=== PATIENT | male | born 1970 | race Hispanic/Latino ===

== ENCOUNTER 2024-01-10 09:11 | Inpatient (IN) | payer OTHER ==
[~2024-01-10] VITALS: Ht 167.6 cm; Wt 78.5 kg
[2024-01-10] MEDS: MAG/ALUM/SIMETH 30 ML UDCUP PO ONE ×2 (09:30→15:01)
[2024-01-10] MEDS: LIDOCAINE HCL 2% VISCOUS 15 ML UDCUP PO ONE (09:30)
[2024-01-10] MEDS: PANTOPrazole 40 MG/VIAL IVP ONE (09:30)
[2024-01-10] MEDS: ondanSETRON 4MG INJ IVP ONE (09:30)
[2024-01-10 09:35] LABS: BASOPHILS # (AUTO) 0.03 K/uL (0.00-0.20); BASOPHILS % (AUTO) 0.4 % (0.0-5.0); EOSINOPHILS # (AUTO) 0.04 K/uL (0.00-0.70); EOSINOPHILS % (AUTO) 0.5 % (0.0-8.0); HEMATOCRIT 46.8 % (42-54); IMMATURE GRANULOCYTE ABSOLUTE 0.02 K/uL (0-1); LYMPHOCYTES # (AUTO) 2.8 K/uL (1.0-4.8); LYMPHOCYTES % (AUTO) 37.8 % (21.0-51.0); MEAN CORPUSCULAR HEMOGLOBIN 30.3 pg (27.0-33.0); MEAN CORPUSCULAR VOLUME 89.1 fL (79-99); MONOCYTES # (AUTO) 0.6 K/uL (0.1-1.0); MONOCYTES % (AUTO) 7.7 % (3.0-13.0); NEUTROPHILS # (AUTO) 3.9 K/uL (1.8-7.7); NEUTROPHILS % (AUTO) 53.3 % (40.0-77.0); PLATELET COUNT (AUTO) 205 K/uL (130-400); RED BLOOD CELL COUNT(AUTO) 5.25 MIL/uL (4.50-6.20); RED CELL DISTRIBUTION WIDTH 12.2 % (11.0-15.5); WHITE BLOOD COUNT (AUTO) 7.3 K/uL (4.8-10.8)
[2024-01-10] MEDS: ASPIRIN 325MG TAB PO ONE (10:27)
[2024-01-10] MEDS: NITROGLYCERIN 0.4 MG SL TAB SL PRN (10:30)
[2024-01-10] MEDS ORDERED: PoTASSium chl 10% ELIXIR 20MEQ 20 MEQ/15 ML UDCUP PO PRN (12:00)
[2024-01-10] MEDS ORDERED: PoTASSium chloRIDE 20MEQ/100ML 100 ML IV PRN (12:00)
[2024-01-10] MEDS ORDERED: acetaMINOPHEN 325 MG TAB PO PRN ×2 (12:00)
[2024-01-10] MEDS ORDERED: guaiFENesin-DM 200/20MG 10ML PO PRN (12:00)
[2024-01-10] MEDS ORDERED: hydrALAZine 20MG/ML VIAL IV PRN (12:00)
[2024-01-10] MEDS ORDERED: FAMOTIDINE 20MG VIAL IV PRN (12:00)
[2024-01-10] MEDS ORDERED: PoTASSium chloRIDE 10MEQ/100ML 100 ML IV PRN (12:00)
[2024-01-10] MEDS ORDERED: DiphenhydrAMINE HCL 25 MG CAPSULE PO PRN (12:00)
[2024-01-10] MEDS ORDERED: DEXTROSE 50%-WATER 50 ML DISP.SYRIN IV PRN (12:00)
[2024-01-10] MEDS ORDERED: MAGNESIUM 2GM PREMIX 50ML 50 ML IV PRN (12:00)
[2024-01-10] MEDS ORDERED: ondanSETRON 4MG INJ IV PRN (12:00)
[2024-01-10] MEDS ORDERED: GLUCAGON 1MG KIT 1 MG ML IM PRN (12:00)
[2024-01-10] MEDS ORDERED: HYDROcodone/APAP 5/325 1 TAB TABLET PO PRN (12:00)
[2024-01-10] MEDS ORDERED: PoTASSium chloRIDE 20MEQ ER 20 MEQ ERTAB PO PRN (12:00)
[2024-01-10] MEDS ORDERED: morPHINE 2 MG SYG IVP PRN (12:00)
[2024-01-10] MEDS ORDERED: NITROGLYCERIN 0.4 MG SL TAB SL PRN (12:00)
[2024-01-10] MEDS ORDERED: LACTULOSE 20 GM/30 ML UDCUP PO PRN (12:00)
[2024-01-10 12:04] LABS: ALBUMIN 3.8 g/dL (3.5-5.0); BILIRUBIN,DIRECT 0.2 mg/dL (0.0-0.3); BILIRUBIN,TOTAL 0.8 mg/dL (0.2-1.0); MAGNESIUM 1.9 mg/dL (1.80-2.40); PHOSPHORUS 3.2 mg/dL (2.5-4.9); TOTAL PROTEIN, SERUM 7.7 g/dL (6.0-8.3)
[2024-01-10 12:05] LABS: HEMOGLOBIN A1C 5.3 % (4.0-6.0)
[2024-01-10 12:56] LABS: APPEARANCE,URINE CLEAR (CLEAR); BILIRUBIN,URINE NEGATIVE (NEGATIVE); COLOR,URINE YELLOW (YELLOW); GLUCOSE, URINE (UA) NEGATIVE (NEGATIVE); KETONES,URINE NEGATIVE (NEGATIVE); LEUKOCYTE ESTERASE ,URINE NEGATIVE Leu/uL (NEGATIVE); NITRATE,URINE NEGATIVE (NEGATIVE); OCCULT BLOOD,URINE NEGATIVE (NEGATIVE); PROTEIN,URINE NEGATIVE (NEGATIVE); UROBILINOGEN,URINE 0.2 mg/dL (0.2-1.0)
[2024-01-10 12:58] LABS: WBC,URINE 0-1 /HPF (0-1)
[2024-01-10 13:10] VITALS: BP 136/90; PULSE 66; RESP 20; TEMP 97.9
[2024-01-10 13:32] VITALS: O2SAT 99
[2024-01-10] MEDS ORDERED: MAG/ALUM/SIMETH 30 ML UDCUP PO PRN (14:30)
[2024-01-10] MEDS: 0.9%NACL 1000ML 1,000 ML IV SCH (15:00)
[2024-01-10 15:30] VITALS: BP 132/72; PULSE 71; RESP 20; TEMP 98.1
[2024-01-10 16:28] LABS: CHOLESTEROL 257 mg/dL (<200); HDL CHOLESTEROL 51 mg/dL (29-71); LDL DIRECT 154 mg/dL (0-99); TRIGLYCERIDES 261 mg/dL (30-200)
[2024-01-10] MEDS: ENOXAPARIN SODIUM 80 MG/0.8 ML SQ SCH (18:06)
[2024-01-10 20:00] VITALS: BP 129/97; PULSE 87; RESP 16; TEMP 98.4; O2SAT 98
[2024-01-10] MEDS: FAMOTIDINE 20MG VIAL IV SCH (21:00)
[2024-01-10] MEDS: atorVAStatin 40 MG TABLET PO SCH (21:00)
[2024-01-10 23:42] VITALS: BP 139/92; PULSE 76; RESP 16; TEMP 98.5
[2024-01-11] VITALS (13 sets, daily range): BP systolic 115–135; BP diastolic 80–94; PULSE 65–83; RESP 18–20; TEMP 98.1–99.6; O2SAT 95–97
[2024-01-11 06:11] LABS: BASOPHILS # (AUTO) 0.02 K/uL (0.00-0.20); BASOPHILS % (AUTO) 0.3 % (0.0-5.0); EOSINOPHILS # (AUTO) 0.05 K/uL (0.00-0.70); EOSINOPHILS % (AUTO) 0.7 % (0.0-8.0); HEMATOCRIT 42.9 % (42-54); IMMATURE GRANULOCYTE ABSOLUTE 0.02 K/uL (0-1); LYMPHOCYTES # (AUTO) 2.8 K/uL (1.0-4.8); LYMPHOCYTES % (AUTO) 37.3 % (21.0-51.0); MEAN CORPUSCULAR HEMOGLOBIN 29.8 pg (27.0-33.0); MEAN CORPUSCULAR HGB CONC 33.1 g/dL (32.0-36.0); MEAN CORPUSCULAR VOLUME 89.9 fL (79-99); MONOCYTES # (AUTO) 0.6 K/uL (0.1-1.0); MONOCYTES % (AUTO) 8.3 % (3.0-13.0); NEUTROPHILS % (AUTO) 53.1 % (40.0-77.0); PLATELET COUNT (AUTO) 209 K/uL (130-400); RED BLOOD CELL COUNT(AUTO) 4.77 MIL/uL (4.50-6.20); RED CELL DISTRIBUTION WIDTH 12.3 % (11.0-15.5); WHITE BLOOD COUNT (AUTO) 7.5 K/uL (4.8-10.8)
[2024-01-11 06:20] LABS: MAGNESIUM 2.2 mg/dL (1.80-2.40); PHOSPHORUS 3.1 mg/dL (2.5-4.9); POTASSIUM 4.6 mmol/L (3.5-5.1)
[2024-01-11 07:52] LABS: INR 1.01 (0.85-1.15); PROTHROMBIN TIME 10.9 SEC (9.6-11.6)
[2024-01-11 07:54] LABS: PARTIAL THROMBOPLASTIN TIME 28.3 SEC (26.3-35.5)
[2024-01-11] MEDS: ASPIRIN 81MG CHEW TAB PO SCH (09:00)
[2024-01-11] MEDS: metOPROLol sucCINATE 25 MG TAB.SR.24H PO SCH (09:00)
[2024-01-11] MEDS ORDERED: ENOXAPARIN SODIUM 40 MG/0.4 ML SYRINGE SQ SCH (09:00)
[2024-01-11 10:11] LABS: HEMOGLOBIN A1C 5.3 % (4.0-6.0)
[2024-01-11] MEDS ORDERED: LIDOCAINE HCL 400MG/20ML VIAL ONE ×2 (11:18→12:37)
[2024-01-11] MEDS ORDERED: IOHEXOL 350 MG/ML 100ML INFUS..BTL IV ONE ×2 (11:19→13:05)
[2024-01-11] MEDS ORDERED: niCARDIpine 25MG INJ IV ONE (11:19)
[2024-01-11] MEDS ORDERED: HEParin-NS 1,000 UNIT/500 ML 1,000 ML IV ONE (11:19)
[2024-01-11] MEDS ORDERED: HEParin 10,000 UNIT/10ML (1,000 UNIT/ML) VIAL ONE (11:19)
[2024-01-11] MEDS ORDERED: NITROGLYCERIN 50MG VIAL ONE (11:19)
[2024-01-11] MEDS ORDERED: FENTanyl CITRate PF 50 MCG/1 ML 2ML VIAL ONE (11:33)
[2024-01-11] MEDS ORDERED: MIDAZOLAM HCL 1 MG/ML 2ML VIAL ONE ×2 (11:34→12:37)
[2024-01-11] MEDS ORDERED: HEParin-NS 1,000 UNIT/500 ML 500 ML IV ONE (12:48)
[2024-01-11] MEDS ORDERED: TICAGrelor 90 MG TABLET ONE (12:48)
[2024-01-11] MEDS ORDERED: ASPIRIN 325MG EC TAB PO ONE (12:50)
[2024-01-11] MEDS ORDERED: morPHINE 4 MG SYG ONE (13:16)
[2024-01-11] MEDS ORDERED: metoPROLOL tartRATE 1 MG/ML 5ML VIAL IV ONE (13:29)
[2024-01-11] MEDS ORDERED: IOHEXOL-350 50ML VIAL IV ONE (13:33)
[2024-01-11] MEDS: 0.9%NACL 1000ML 1,000 ML IV SCH (15:13)
[2024-01-11] MEDS: TICAGrelor 90 MG TABLET PO SCH (19:59)
[2024-01-12 00:15] VITALS: BP 135/92; PULSE 71; RESP 18; TEMP 98.5
[2024-01-12 04:58] VITALS: BP 144/94; PULSE 82; RESP 18; TEMP 98.2
[2024-01-12 05:32] LABS: HEMATOCRIT 44.7 % (42-54); MEAN CORPUSCULAR HEMOGLOBIN 30.4 pg (27.0-33.0); MEAN CORPUSCULAR HGB CONC 33.6 g/dL (32.0-36.0); MEAN CORPUSCULAR VOLUME 90.7 fL (79-99); RED BLOOD CELL COUNT(AUTO) 4.93 MIL/uL (4.50-6.20); RED CELL DISTRIBUTION WIDTH 12.2 % (11.0-15.5); WHITE BLOOD COUNT (AUTO) 9.7 K/uL (4.8-10.8)
[2024-01-12 06:03] LABS: CREATININE 1.1 mg/dL (0.5-1.3); POTASSIUM 3.9 mmol/L (3.5-5.1)
[2024-01-12] MEDS ORDERED: METO25TA3 PO (07:16)
[2024-01-12] MEDS ORDERED: Nitroglycerin 0.4MG Sl Tab SL (07:16)
[2024-01-12] MEDS ORDERED: ATOR40TA69 PO (07:16)
[2024-01-12] MEDS ORDERED: ASPI-1005 PO (07:16)
[2024-01-12] MEDS ORDERED: CLOP-31 PO (07:16)
[2024-01-12 08:00] VITALS: BP 123/86; PULSE 75; RESP 18; TEMP 98.2; O2SAT 96
[2024-01-12] MEDS: cloPIDOgrel 300MG TAB PO ONE (08:21)
[2024-01-13] MEDS ORDERED: cloPIDOgrel 75MG TAB PO SCH (09:00)
== END 2024-01-12 13:30 | disposition home or self-care (01) | DRG 321 ==
LOC: EDH 09:11 → EDHIP 11:32 → 4DH 13:10
PROVIDERS: ADMIT Internal Medicine Sleep Medicine; ATTEND Internal Medicine Sleep Medicine
PROC: 027135Z Dilation of Coronary Artery, Two Arteries with Two Drug-eluting Intraluminal Devices, Percutaneous Approach (ICD-10-PCS; principal; 2024-01-11)
PROC: 4A023N7 Measurement of Cardiac Sampling and Pressure, Left Heart, Percutaneous Approach (ICD-10-PCS; 2024-01-11)
PROC: B2111ZZ Fluoroscopy of Multiple Coronary Arteries using Low Osmolar Contrast (ICD-10-PCS; 2024-01-11)
PROC: B240ZZ3 Ultrasonography of Single Coronary Artery, Intravascular (ICD-10-PCS; 2024-01-11)
DX: I25.10 Atherosclerotic heart disease of native coronary artery without angina pectoris (principal); I21.4 Non-ST elevation (NSTEMI) myocardial infarction; E78.5 Hyperlipidemia, unspecified; K21.9 Gastro-esophageal reflux disease without esophagitis; Z79.899 Other long term (current) drug therapy; Z82.49 Family history of ischemic heart disease and other diseases of the circulatory system; Z83.3 Family history of diabetes mellitus
CPT/HCPCS: 36415; 71045; 80048; 80061; 80076; 81001; 83036; 83735; 84100; 84484; 85025; 85027; 85378; 85610; 85730; 92978; 93005; 93306; 93356; 93458; 96374; 96375; 99156; 99157; 99291; C1760; C1769; C1874; C1887; C1894; C9600; C9601; C9606; G0378; J1644; J1650; J2250; J2270; J2405; J2470; J3010; J3490; Q9967; A4649; C1713; C1725; C1753; C1757; Q9965

== ENCOUNTER → 2024-04-10 | Outpatient (CLI) | payer OTHER ==
[~2024-04-10] MED LIST: ASPI-1005 PO; ATOR40TA69 PO; CLOP-31 PO; METO25TA3 PO; Nitroglycerin 0.4MG Sl Tab SL
[2024-04-10] MEDS: REGADENOSON 0.4 MG/5 ML PF SYG IVP ONE (14:12)
--- NOTE | 2024-04-11 07:56 | HMCSR ---
APPROVED REPORT Height: 5 ft 6in Weight: 177 lbs TEST INDICATIONS CAD The imaging protocol used to acquire images was Rest Tc-99m/stress Tc-99m 1 day Consent: The procedure was explained and understood by the patient. Informerd consent was witnessed Cal Zimmer RN First, low dose rest was performed then high dose stress. RESTING DATA: The resting ekg shows: NSR Rest SPECT myocardial perfusion imaging was performed in supine position 66 minutes following the int ravenous injection of 9 mCi of Tc-99 Sestamibi. Time of rest injection: 08:12: Date: 04/10/2024 Time of rest imagin:18: Date: 04/10/2024 PHARMACOLOGIC STRESS: Pharmacologic stress test was performed by injecting regadenoson 0.4 mg IV push followed by the intra venous injection of 31.7 mCi of Tc-99 Sestamibi. Time of stress injection: 09:40: Date: 04/10/2024 Time of stress imagin:00: Date: 04/10/2024 Heart Rate at time of stress injection: 71 bpm. Gated Stress SPECT was performed 80 minutes after stress injection. The images were gated to evaluate regional wall motion and calculate left ventricular ejection fracti on. STRESS DETAILS Reason for Termination: Infusion complete Stress Symptoms: Dyspnea Max HR Achieved: 136 bpm % of APMHR Achieved: 81 Max Blood Pressure: 155/92 mmHg Stress ECG: NSR Conclusion No ischemia No infarct LV ejection fraction 70% Normal LV wall motion Normal LV size at rest and stress No increased lung uptake
== END | disposition home or self-care (01) ==
LOC: SHCH 07:59
PROVIDERS: ATTEND Internal Medicine Cardiovascular Disease
DX: I25.10 Atherosclerotic heart disease of native coronary artery without angina pectoris (principal); R06.00 Dyspnea, unspecified; R51.9 Headache, unspecified
CPT/HCPCS: 78452; 93017; J2785; A9500 ×2

== ENCOUNTER 2024-04-17 07:48 | Emergency (ER) | payer OTHER ==
[~2024-04-17] VITALS: Ht 165.1 cm; Wt 77.1 kg
--- NOTE | 2024-04-17 08:03 | ERN ---
ED Note History of Present Illness Stated Complaint: HEADACHE Chief Complaint: Headache Time Seen by MD: 07:58 Dictation: A 53-year-old male who comes to the ED. Because he over the last couple of days. It has some intermittent nonspecific headache. The comes and goes. He also stated that he has some left-sided some knee pain. This is the lateral side of his left lower knee. By the peroneal nerve. Also some left upper abdominal pain that comes and goes denies any changes in bowel or urination has not hematuria dysuria or discharge. No chest pain no shortness of breath no falls or traumas he is concerned because he had a stent placed in January does feel that his arm was intermittently tingly. This does change with motion of his left arm left shoulder Allergies: Coded Allergies: No Known Drug Allergies (Unverified Allergy, Unknown, 01/10/24) Home Meds Active Scripts [Nitroglycerin 0.4MG Sl Tab] 0.4 MG TAB.SUBL No Conflict Check, 0.4 MG SL PROTOCOL PRN for CHEST PAIN, #25 0 Refills Prov:JASMYNE PORTER MD 01/12/24 Metoprolol Succinate (Toprol Xl) 25 Mg Tab.er.24h, 12.5 MG PO DAILY, #90 TAB 3 Refills Prov:JASMYNE PORTER MD 01/12/24 Clopidogrel Bisulfate (Plavix) 75 Mg Tablet, 75 MG PO DAILY, #90 TAB 1 Refill Prov:JASMYNE PORTER MD 01/12/24 Atorvastatin Calcium (LIPITOR) 40 Mg Tablet, 40 MG PO HS, #90 TAB 3 Refills Prov:JASMYNE PORTER MD 01/12/24 Aspirin (ASPIRIN 81MG CHEW TAB) 81 Mg Tab.chew, 81 MG PO DAILY, #100 TAB.CHEW 3 Refills Prov:JASMYNE PORTER MD 01/12/24 Past Medical History Past Medical History: CAD, High Cholesterol, Hypertension Surgical History: Appendectomy, Other Surgical History Other: STENTS Review of System Dictation Constitutional: Negative for fever,chills, and weight loss Eyes: Negative for injury, pain,redness, and discharge ENT: Negative for injury,pain or swelling Cardiovascular: Negative for chest pain, palpitations, and edema Respiratory: Negative for shortness of breath, cough, and wheezing, Abdomen/GI: Negative for abdominal pain, nausea, vomiting, diarrhea, and constipation Back: Negative for injury and pain : Negative for injury, bleeding and discharge MS/Extremity: Negative for injury and deformity Skin: Negative for rash, and discoloration Neuro: Negative for headache, weakness, numbness, tingling, and seizure Psych: Negative for suicide ideation, homicidal ideation, and hallucinations Initial Vital Sign VS Vital Signs Date Time Temp Pulse Resp B/P (MAP) Pulse Ox O2 Delivery O2 Flow Rate FiO2 04/17/24 07:48 98.1 75 20 146/98 99 Room Air 0 Physical Exam Dictation General: awake, alert, NAD Head/Face: Normocephalic, atraumatic Eyes: PERRL, EOMI, vision at baseline ENT: oral cavity clear, TMs clear, no signs of infection Neck: Trachea midline, supple, no nuchal rigidity Cardiovascular: RRR, normal S1/S2, No MRGs, no JVD Respiratory: CTAB, no respiratory distress, No rales or wheezes Abdomen: Soft, non-tender, non-distended, normal bowel sounds, no guarding or rebound. Skin: Warm, dry, normal turgor, no rash MS/Extremity: Pulses equal, no cyanosis, neurovascular intact, FROM Neuro: COAx4, GCS 15, strength 5/5, CN 2-12 intact, normal cerebellar exam, normal gait, Psych: Normal behavior, mood, and affect normal NIH of 0 no focal deficits. Does not have any calf pain. Does not have any calf swelling compared to by a either bilateral leg. Does have 5/5 strength range of motion on both legs both knees both hips. This pain is tender to palpation has reproducible. This is the left lateral knee. By the peroneal nerve. Again there is either there is no swelling there is no redness there is no bruising Results (Laboratory/Radiology) Laboratory/Radiology Laboratory Tests Test 04/17/24 08:19 04/17/24 08:43 White Blood Count 5.5 K/uL (4.8-10.8) Red Blood Count 5.07 MIL/uL (4.50-6.20) Hemoglobin 14.7 g/dL (14.0-18.0) Hematocrit 44.2 % (42-54) Mean Corpuscular Volume 87.2 fL (79-99) Mean Corpuscular Hemoglobin 29.0 pg (27.0-33.0) Mean Corpuscular Hemoglobin Concent 33.3 g/dL (32.0-36.0) Red Cell Distribution Width 12.6 % (11.0-15.5) Platelet Count 211 K/uL (130-400) Mean Platelet Volume 9.8 fL (7.5-10.5) Immature Granulocyte % (Auto) 0.2 % (0-1) Neutrophils (%) (Auto) 57.1 % (40.0-77.0) Lymphocytes (%) (Auto) 31.8 % (21.0-51.0) Monocytes (%) (Auto) 9.8 % (3.0-13.0) Eosinophils (%) (Auto) 0.7 % (0.0-8.0) Basophils (%) (Auto) 0.4 % (0.0-5.0) Neutrophils # (Auto) 3.2 K/uL (1.8-7.7) Lymphocytes # (Auto) 1.8 K/uL (1.0-4.8) Monocytes # (Auto) 0.5 K/uL (0.1-1.0) Eosinophils # (Auto) 0.04 K/uL (0.00-0.70) Basophils # (Auto) 0.02 K/uL (0.00-0.20) Absolute Immature Granulocyte (auto 0.01 K/uL (0-1) Nucleated Red Blood Cells 0.0 % (0.0-0.19) Sodium Level 138 mmol/L (136-145) Potassium Level 4.1 mmol/L (3.5-5.1) Chloride Level 103 mmol/L (101-111) Carbon Dioxide Level 32 mmol/L (21-32) Blood Urea Nitrogen 13 mg/dL (7-18) Creatinine 1.0 mg/dL (0.5-1.3) Glomerular Filtration Rate Calc 91 mL/min (>90) Random Glucose 91 mg/dL (70-105) Total Calcium 8.8 mg/dL (8.5-10.1) Troponin I High Sensitivity 5 ng/L (4-75) Troponin I < 0.05 ng/mL (0.00-0.05) ED Course ED Course Orders Procedure Category Date Status Time Cbc With Differential LAB 04/17/24 Complete 07:58 Chest 1vw RAD 04/17/24 Taken 07:58 12 Lead Ekg Tracing- EKG 04/17/24 Complete Technical 07:58 Basic Metabolic Panel LAB 04/17/24 Complete 07:58 Troponin I High LAB 04/17/24 Complete Sensitivity 08:07 Vital Signs Date Time Temp Pulse Resp B/P (MAP) Pulse Ox O2 Delivery O2 Flow Rate FiO2 04/17/24 07:48 98.1 75 20 146/98 99 Room Air 0 Medical Decision Making MDM MDM: Differential diagnosis: Did consider DVT have no signs of this whatsoever. Did consider ACS unlikely does not have any chest pain or shortness of breath any radiating symptoms. Did consider stroke there is no evidence of this is likely a radiculopathy. Rationale: Tests considered and ordered secondary to shared decision making include: Previous outside records reviewed: Old ER visits. Risk of complication and/or morbidity or mortality of patient management: None Medications-Per medication reconciliation Need for hospitalization: Patient does not meet criteria for hospitalization. Need for emergency major/minor surgery: No There are no social concerns with this patient. Prescription drug management Prescriptions will include symptomatic care Patient's prior external medical records from other ER visits were reviewed by me as indicated. Prior testing and results from previous visits were reviewed. Prior tests were taken into account with medical decision making and resource ut ilization, independent historian/historians were used to obtain complete medical history. I independently interpreted the test that were performed, results were reviewed by me and considered findings on radiology if ordered. Medical management and examination interpretation discussions were had by me with other qualified healthcare professionals as indicated for the patient's car e. DX & DISP Disposition: Discharge Departure Impression: Primary Impression: Acute pain Condition: Stable Referrals: MORENO NAGY MD (PCP) KONRAD MOYA MD Apr 17, 2024 08:03
--- NOTE | 2024-04-17 08:18 | NUR ---
PT PLACED IN [facility] B1
[2024-04-17 08:42] LABS: POTASSIUM 4.1 mmol/L (3.5-5.1)
[2024-04-17 08:46] LABS: BASOPHILS # (AUTO) 0.02 K/uL (0.00-0.20); BASOPHILS % (AUTO) 0.4 % (0.0-5.0); EOSINOPHILS # (AUTO) 0.04 K/uL (0.00-0.70); EOSINOPHILS % (AUTO) 0.7 % (0.0-8.0); HEMATOCRIT 44.2 % (42-54); IMMATURE GRANULOCYTE ABSOLUTE 0.01 K/uL (0-1); LYMPHOCYTES # (AUTO) 1.8 K/uL (1.0-4.8); LYMPHOCYTES % (AUTO) 31.8 % (21.0-51.0); MEAN CORPUSCULAR HGB CONC 33.3 g/dL (32.0-36.0); MEAN CORPUSCULAR VOLUME 87.2 fL (79-99); MONOCYTES # (AUTO) 0.5 K/uL (0.1-1.0); MONOCYTES % (AUTO) 9.8 % (3.0-13.0); NEUTROPHILS # (AUTO) 3.2 K/uL (1.8-7.7); NEUTROPHILS % (AUTO) 57.1 % (40.0-77.0); PLATELET COUNT (AUTO) 211 K/uL (130-400); RED BLOOD CELL COUNT(AUTO) 5.07 MIL/uL (4.50-6.20); RED CELL DISTRIBUTION WIDTH 12.6 % (11.0-15.5); WHITE BLOOD COUNT (AUTO) 5.5 K/uL (4.8-10.8)
--- NOTE | 2024-04-17 08:59 | EKG ---
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
[2024-04-17 09:43] VITALS: BP 141/95; PULSE 80; RESP 20; TEMP 98.1; O2SAT 98
--- NOTE | 2024-04-17 10:17 | HMCIMG ---
CHEST 1VW REASON: [place] COMPARISON: 01/10/2024 FINDINGS: Single view of the chest was obtained. Lungs are clear. Heart size is normal. There is no pulmonary vascular congestion. Mediastinum and bony thorax appear unremarkable. IMPRESSION: 1. Normal single view chest x-ray.
== END 2024-04-17 09:45 | disposition home or self-care (01) ==
LOC: EDH 07:48
DX: M25.562 Pain in left knee (principal); R51.9 Headache, unspecified; R10.12 Left upper quadrant pain; E78.00 Pure hypercholesterolemia, unspecified; I10 Essential (primary) hypertension; I25.10 Atherosclerotic heart disease of native coronary artery without angina pectoris; Z79.02 Long term (current) use of antithrombotics/antiplatelets; Z79.82 Long term (current) use of aspirin; Z79.899 Other long term (current) drug therapy; Z90.49 Acquired absence of other specified parts of digestive tract
CPT/HCPCS: 36415; 71045; 80048; 84484; 85025; 93005; 99285

== ENCOUNTER → 2024-07-16 | Emergency (ER) | payer OTHER ==
[~2024-07-16] VITALS: Ht 167.6 cm; Wt 78.0 kg
[2024-07-16 09:25] LABS: BASOPHILS # (AUTO) 0.02 K/uL (0.00-0.20); BASOPHILS % (AUTO) 0.4 % (0.0-5.0); EOSINOPHILS # (AUTO) 0.05 K/uL (0.00-0.70); EOSINOPHILS % (AUTO) 0.9 % (0.0-8.0); HEMATOCRIT 43.4 % (42-54); IMMATURE GRANULOCYTE ABSOLUTE 0.01 K/uL (0-1); LYMPHOCYTES % (AUTO) 37.3 % (21.0-51.0); MEAN CORPUSCULAR HEMOGLOBIN 27.6 pg (27.0-33.0); MEAN CORPUSCULAR HGB CONC 32.5 g/dL (32.0-36.0); MEAN CORPUSCULAR VOLUME 85.1 fL (79-99); MONOCYTES # (AUTO) 0.5 K/uL (0.1-1.0); MONOCYTES % (AUTO) 9.6 % (3.0-13.0); NEUTROPHILS # (AUTO) 2.7 K/uL (1.8-7.7); NEUTROPHILS % (AUTO) 51.6 % (40.0-77.0); PLATELET COUNT (AUTO) 196 K/uL (130-400); RED CELL DISTRIBUTION WIDTH 13.2 % (11.0-15.5); WHITE BLOOD COUNT (AUTO) 5.3 K/uL (4.8-10.8)
[2024-07-16 09:37] LABS: INR 1.01 (0.85-1.15); PROTHROMBIN TIME 10.7 SEC (9.6-11.6)
[2024-07-16 09:38] LABS: PARTIAL THROMBOPLASTIN TIME 26.1 SEC (26.3-35.5)
[2024-07-16 09:44] LABS: APPEARANCE,URINE CLEAR (CLEAR); BILIRUBIN,URINE NEGATIVE (NEGATIVE); COLOR,URINE LIGHT-YELLOW (YELLOW); GLUCOSE, URINE (UA) NEGATIVE (NEGATIVE); KETONES,URINE NEGATIVE (NEGATIVE); LEUKOCYTE ESTERASE ,URINE NEGATIVE Leu/uL (NEGATIVE); NITRATE,URINE NEGATIVE (NEGATIVE); OCCULT BLOOD,URINE NEGATIVE (NEGATIVE); PROTEIN,URINE NEGATIVE (NEGATIVE); UROBILINOGEN,URINE 0.2 mg/dL (0.2-1.0)
[2024-07-16 09:45] LABS: ADD UA MICROSCOPIC NO
[2024-07-16 09:47] LABS: POTASSIUM 3.9 mmol/L (3.5-5.1)
[2024-07-16 09:51] LABS: B-TYPE NATRIURETIC PEPTIDE 17 pg/mL (0-100); MAGNESIUM 2.1 mg/dL (1.80-2.40)
--- NOTE | 2024-07-16 09:58 | HMCIMG ---
Exam Type: CHEST 1VW Clinical Information: cp Comparison: None Findings: The lungs are clear of infiltrates. The heart is normal in size. The bony and soft tissue structures of the chest are unremarkable. Impression: Clear lungs.
--- NOTE | 2024-07-16 11:06 | ERN ---
General Chief Complaint: Chest Pain Stated Complaint: CHEST PAIN Time Seen by MD: 08:53 Source: patient History of Present Illness Initial Comments In his is a 53-year-old female coming in to be evaluated chest pressure. Patient states that this began yesterday she was concerned decided to come in for further evaluation. Patient states that the moment he was pain has improved . Allergies: Coded Allergies: No Known Drug Allergies (Unverified Allergy, Unknown, 01/10/24) Home Meds Active Scripts [Nitroglycerin 0.4MG Sl Tab] 0.4 MG TAB.SUBL No Conflict Check, 0.4 MG SL PROTOCOL PRN for CHEST PAIN, #25 0 Refills Prov:JASMYNE PORTER MD 01/12/24 Metoprolol Succinate (Toprol Xl) 25 Mg Tab.er.24h, 12.5 MG PO DAILY, #90 TAB 3 Refills Prov:JASMYNE PORTER MD 01/12/24 Clopidogrel Bisulfate (Plavix) 75 Mg Tablet, 75 MG PO DAILY, #90 TAB 1 Refill Prov:JASMYNE PORTER MD 01/12/24 Atorvastatin Calcium (LIPITOR) 40 Mg Tablet, 40 MG PO HS, #90 TAB 3 Refills Prov:JASMYNE PORTER MD 01/12/24 Aspirin (ASPIRIN 81MG CHEW TAB) 81 Mg Tab.chew, 81 MG PO DAILY, #100 TAB.CHEW 3 Refills Prov:JASMYNE PORTER MD 01/12/24 Past Medical History Past Medical History: CAD, High Cholesterol, Heart Disease, Hypertension Past Surgical History: Appendectomy, Other Surgical History Other: STENTS ROS Dictation CONSTITUTIONAL: No chills, no fever, no weakness, no diaphoresis, no malaise. HEAD/FACE: No signs of trauma. EENT: No eye pain, no blurred vision, no tearing, no double vision, no ear pain, no ear discharge, no nose pain, no nasal congestion, no throat pain, no throat swelling, no mouth pain. RESPIRATORY: No cough, no orthopnea, no SOB, no stridor, no wheezing. CARDIOVASCULAR: No chest pain, no edema, no palpitations, no syncope. GASTROINTESTINAL/ABDOMINAL: No abdominal pain, no constipation, no diarrhea, no nausea, no vomiting. GENITOURINARY: No abnormal discharge, no dysuria, no frequent urination, no hematuria. No complaints of pain in the genitals. MUSCULOSKELETAL: No back pain, no gout, no joint pain, no joint swelling, no muscle pain, no muscle stiffness, no neck pain. INTEGUMENTARY: No change in color, no change in hair/nails, no dryness, no lesion, no lumps, no rash. NEUROLOGICAL/PSYCH: No anxiety, not depressed, no emotional problem, no headache, no numbness, no pre-existing deficit, no history of seizures, no tremors, no weakness. HEMATOLOGIC/LYMPHATIC: Not anemic, no history of blood clots, no apparent bleeding, no bruising, glands not swollen. All Systems Negative, Except as Noted. Physical Exam Physical Exam Dictation VITAL SIGNS: Reviewed. GENERAL APPEARANCE: Alert, oriented x3, no acute distress, obese. HEAD AND FACE: Non-traumatic. EYES: PERRL, pink conjunctivas, eyelid no trauma, anterior chamber clear. EARS: Pinnas intact and no signs of trauma or erythema. Ear canals clear and no discharge. TMs no erythema. NOSE: No discharge, no bleeding. OROPHARYNX: Mouth normal, teeth no caries, tongue pink. Pharynx clear, no erythema. Tonsils no exudates, no abscesses noted. Mucous membrane moist. NECK: Supple, non-tender, no thyromegaly, no masses, no JVD, no bruits. BREAST: Deferred. CHEST: No tenderness, no crepitus, no paradoxical movement, no retractions. LUNGS: Clear, well-ventilated, symmetric, no rales, no wheezing, no rhonchi, no stridor, good breath sounds bilaterally. HEART: Regular rate, regular rhythm, no murmur, no gallops. VASCULAR: No peripheral edema. ABDOMEN: Soft, positive bowel sounds, nondistended, no guarding, nontender, no rebound, no masses no hepatomegaly, no splenomegaly, no Damon's sign, no hernias. RECTAL: Deferred. GENITAL: Deferred. NEUROLOGICAL: Normal speech, gross motor function intact, gross sensory function intact. MUSCULOSKELETAL: Neck nontender, full range of motion, back nontender, full range of motion. EXTREMITIES: Nontender, full range of motion. SKIN: Color pink, dry, no turgor, no rash, no lacerations, no abrasions, no contusions. LYMPHATICS: Deferred. Results Laboratory and Microbiology Lab and Micro Result Laboratory Tests Test 07/16/24 09:12 07/16/24 09:24 07/16/24 10:24 White Blood Count 5.3 K/uL (4.8-10.8) Red Blood Count 5.10 MIL/uL (4.50-6.20) Hemoglobin 14.1 g/dL (14.0-18.0) Hematocrit 43.4 % (42-54) Mean Corpuscular Volume 85.1 fL (79-99) Mean Corpuscular Hemoglobin 27.6 pg (27.0-33.0) Mean Corpuscular Hemoglobin Concent 32.5 g/dL (32.0-36.0) Red Cell Distribution Width 13.2 % (11.0-15.5) Platelet Count 196 K/uL (130-400) Mean Platelet Volume 9.9 fL (7.5-10.5) Immature Granulocyte % (Auto) 0.2 % (0-1) Neutrophils (%) (Auto) 51.6 % (40.0-77.0) Lymphocytes (%) (Auto) 37.3 % (21.0-51.0) Monocytes (%) (Auto) 9.6 % (3.0-13.0) Eosinophils (%) (Auto) 0.9 % (0.0-8.0) Basophils (%) (Auto) 0.4 % (0.0-5.0) Neutrophils # (Auto) 2.7 K/uL (1.8-7.7) Lymphocytes # (Auto) 2.0 K/uL (1.0-4.8) Monocytes # (Auto) 0.5 K/uL (0.1-1.0) Eosinophils # (Auto) 0.05 K/uL (0.00-0.70) Basophils # (Auto) 0.02 K/uL (0.00-0.20) Absolute Immature Granulocyte (auto 0.01 K/uL (0-1) Nucleated Red Blood Cells 0.0 % (0.0-0.19) Prothrombin Time 10.7 SEC (9.6-11.6) Prothromb Time International Ratio 1.01 (0.85-1.15) Activated Partial Thromboplast Time 26.1 SEC (26.3-35.5) L Sodium Level 139 mmol/L (136-145) Potassium Level 3.9 mmol/L (3.5-5.1) Chloride Level 105 mmol/L (101-111) Carbon Dioxide Level 27 mmol/L (21-32) Blood Urea Nitrogen 13 mg/dL (7-18) Creatinine 1.0 mg/dL (0.5-1.3) Glomerular Filtration Rate Calc 91 mL/min (>90) Random Glucose 92 mg/dL (70-105) Total Calcium 8.8 mg/dL (8.5-10.1) Magnesium Level 2.10 mg/dL (1.80-2.40) Total Creatine Kinase 110 U/L (21-232) Troponin I High Sensitivity 6 ng/L (4-75) 8 ng/L (4-75) B-Type Natriuretic Peptide 17 pg/mL (0-100) Urine Color LIGHT-YELLOW (YELLOW) Urine Appearance CLEAR (CLEAR) Urine pH 7.0 (5.0-8.0) Urine Specific [place] 1.008 (1.001-1.031) Urine Protein NEGATIVE mg/dL (NEGATIVE) Urine Glucose (UA) NEGATIVE mg/dL (NEGATIVE) Urine Ketones NEGATIVE mg/dL (NEGATIVE) Urine Occult Blood NEGATIVE (NEGATIVE) Urine Nitrate NEGATIVE (NEGATIVE) Urine Bilirubin NEGATIVE mg/dL (NEGATIVE) Urine Urobilinogen 0.2 mg/dL (0.2-1.0) Urine Leukocyte Esterase NEGATIVE James/uL Labs Reviewed?: Yes EKG/XRAY/US/CT/MRI EKG Comment 07/16/2024 time 8:49 a.m. Ventricular rate 72 Sinus rhythm [place] [address] wave elevation or depression X-RAY Comment [address] [address] IMAGING REPORT Signed PATIENT: DARREN CASTRO MR#: [id number] : 1970 SEX: M AGE: 53 LOCATION: [facility] ORDER 1 STATUS: REG REPORT#: [id number] SERVICE 0 REASON: cp ORDERING PHYSICIAN: NATHALIE DURAN MD PROCEDURE: CXR1VW - CHEST 1VW Exam Type: CHEST 1VW Clinical Information: cp Comparison: None Findings: The lungs are clear of infiltrates. The heart is normal in size. The bony and soft tissue structures of the chest are unremarkable. Impression: Clear lungs. DICTATED BY: YOSVANY GILL MD DATE: 07/16/24954 ELECTRONICALLY SIGNED BY: YOSVANY GILL MD DATE: 07/16/24957 [facility] MDM: Differential diagnosis: Chest pain, has a STEMI, ACS, Rationale: Tests considered and ordered secondary to shared decision making include: Previous outside records reviewed: Old ER visits. Risk of complication and/or morbidity or mortality of patient management: None Patient is a 53-year-old male coming in to be evaluated for chest pressure. Per patient he has a history of stent was worried that he might having some issues with the heart decided to come in for further evaluation. Laboratory workup x2 negative. Patient states he was more worried about the stents decided to come in for further evaluation but states that the chest pain has resolved. Patient will be discharged with pain-free, and has been pain-free throughout ER visit. ED Course Orders Procedure Category Date Status Time Cbc With Differential LAB 07/16/24 Complete 09:11 Prothrombin Time With LAB 07/16/24 Complete INR 09:11 B-Type Natriuretic LAB 07/16/24 Complete Peptide 09:11 Chest 1vw RAD 07/16/24 Resulted 09:11 12 Lead Ekg Tracing- EKG 07/16/24 Logged Technical 09:11 Magnesium LAB 07/16/24 Complete 09:11 Creatine Kinase, Total LAB 07/16/24 Complete 09:11 Troponin I High LAB 07/16/24 Complete Sensitivity 09:11 Urinalysis Profile LAB 07/16/24 Complete 09:11 Partial LAB 07/16/24 Complete Thromboplastin Time 09:11 Basic Metabolic Panel LAB 07/16/24 Complete 09:11 Troponin I High LAB 07/16/24 Complete Sensitivity 10:16 Vital Signs Date Time Temp Pulse Resp B/P (MAP) Pulse Ox O2 Delivery O2 Flow Rate FiO2 07/16/24 10:50 98.2 83 16 132/88 97 Room Air* 0 21 07/16/24 09:18 98.8 21 12 142/91 96 Room Air* 0 21 07/16/24 08:51 98.4 78 16 142/96 99 Room Air 0 DX & DISP Disposition: Discharge Departure Impression: Primary Impression: Anxiety Additional Impression: History of non-ST elevation myocardial infarction (NSTEMI) Condition: Stable Additional Instructions: You have been reviewed in the emergency department at [facility] after presenting with chest pain. After considering your history, your risk factors, your EKG and your blood test troponins, have been found to be at very low risk less than (1 in 100) of having a major adverse cardiac event (like heart attack) in the near future. In the " low risk" group, the risks of doing further tests and treatment as the inpatient outweighs the benefits. In many patients in the low risk group for the test of any sort or unnecessary, however he should discuss this further with his general practitioner who will understand the medical and personal backgrounds better. Because we have never declared you" no risk" we would suggest. 1 returning for medical review if you have further episodes of chest pain/arm pain or other concerning symptoms like dizziness, collapse, palpitations or shortness of breath. 2. Following up with your local doctor who will consider the need for further testing and will also ensure that any modifiable risk factors you may have for heart disease are optimally managed. Patient will be discharged in stable condition at the moment discharge patient states , no chest pain Referrals: MORENO NAGY MD (PCP) Time of Disposition: 11:06 NATHALIE DURAN MD Jul 16, 2024 11:06
[2024-07-16 12:06] VITALS: BP 124/95; PULSE 74; RESP 17; TEMP 98.6; O2SAT 97
--- NOTE | 2024-07-16 13:16 | EKG ---
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
== END ==
LOC: EDH 08:50
DX: F41.9 Anxiety disorder, unspecified (principal); E78.00 Pure hypercholesterolemia, unspecified; I10 Essential (primary) hypertension; I25.10 Atherosclerotic heart disease of native coronary artery without angina pectoris; I25.2 Old myocardial infarction; Z79.02 Long term (current) use of antithrombotics/antiplatelets; Z79.82 Long term (current) use of aspirin; Z79.899 Other long term (current) drug therapy; Z90.49 Acquired absence of other specified parts of digestive tract
CPT/HCPCS: 36415; 71045; 80048; 81003; 82550; 83735; 83880; 84484; 85025; 85610; 85730; 93005; 99285